=== PATIENT | male | born 1955 | race American Indian/Alaskan Native ===

== ENCOUNTER 2020-07-02 10:45 | Inpatient (IN) | payer MEDICARE ==
--- NOTE | 2020-07-02 11:28 | Emergency Department Report ---
HPI - General Chief Complaint: Syncope Time Seen by Provider: 07/02/20 11:09 - [facility] HPI: Room 23 The patient is a 64-year-old male present with a chief complaint of syncope. Patient states he has been having pain in his legs for the past 6 weeks. Jacinto nt states he took an uber to his primary physician's office this morning and when attempting to get out of the car his legs "would not respond." The patient states staff attempted to help him get into a chair and when he stood up he felt dizzy and had to lay on the floor and staff told him he lost consciousness. Patient was subsequently transferred ported to the ED. Patient denied any preceding chest pain, shortness of breath, palpitations or headache. When asked how he is feeling currently the patient states he feels good. Patient denied any preceding nausea vomiting or diarrhea. Patient denies history of fever. ED Past Medical Hx - Past Medical History Hx Hypertension: Yes Hx HIV: Yes (Viral load undetectable 2018) - Surgical History Additional Surgical History: Cervical fusion, penile implant - Family History Family history: no significant - Social History Smoking Status: Current Every Day Smoker (1 pack/day) Substance Use Type: None (Denies illicit drug use), Alcohol (Frequently) ED Review of Systems ROS: Stated complaint: SYNCOPE Other details as noted in HPI Constitutional: denies: fever Respiratory: denies: shortness of breath Cardiovascular: denies: chest pain, palpitations Endocrine: no symptoms reported Gastrointestinal: denies: nausea, vomiting, diarrhea Neurological: denies: headache Physical Exam - Physical Exam Vital Signs: Vital Signs 07/02/20 11:03 Pulse Rate 60 Respiratory 18 Rate Blood Pressure 100/68 [Left] O2 Sat by Pulse 96 Oximetry Physical Exam: GENERAL: The patient is well-developed well-nourished male lying on stretcher not appearing to be in acute distress. [] HEENT: Normocephalic. Atraumatic. Extraocular motions are intact. Patient has moist mucous membranes. NECK: Supple. Trachea midline CHEST/LUNGS: Clear to auscultation. There is no respiratory distress noted. HEART/CARDIOVASCULAR: Regular. There is no tachycardia. There is no gallop rub or murmur. ABDOMEN: Abdomen is soft, nontender. Patient has normal bowel sounds. There is no abdominal distention. SKIN: There is no rash. There is no edema. There is no diaphoresis. NEURO: The patient is awake, alert, and oriented. The patient is cooperative. The patient has no focal neurologic deficits. The patient has normal speech. Cranial nerves II through XII grossly intact. Patient able to hold either leg at 30 degree angle from bed without drifting for 5-second count MUSCULOSKELETAL: There is no evidence of acute injury. ED Course Vital Signs 07/02/20 11:03 Pulse Rate 60 Respiratory 18 Rate Blood Pressure 100/68 [Left] O2 Sat by Pulse 96 Oximetry ED Medical Decision Making - Lab Data Result diagrams: 07/02/20 11:45 07/02/20 11:45 Laboratory Tests 07/02/20 07/02/20 07/02/20 11:45 11:45 11:45 WBC 4.5 RBC 4.99 Hgb 14.8 Hct 45.2 MCV 91 MCH 30 MCHC 33 RDW 16.7 H Plt Count 247 Lymph % (Auto) 20.0 [place] % (Auto) 10.7 H Eos % (Auto) 0.6 Baso % (Auto) 0.5 Lymph # (Auto) 0.9 L [place] # (Auto) 0.5 Eos # (Auto) 0.0 Baso # (Auto) 0.0 Seg Neutrophils % 68.2 Seg Neutrophils # 3.0 D-Dimer 456.79 H Sodium 136 L Potassium 4.8 Chloride 102.8 Carbon Dioxide 25 Anion Gap 13 BUN 16 Creatinine 1.5 H Estimated GFR 57 BUN/Creatinine Ratio 11 Glucose 90 Calcium 9.3 Magnesium Total Bilirubin 0.40 AST 15 ALT 11 Alkaline Phosphatase 58 Total Creatine Kinase 173 H CK-MB (CK-2) 2.8 CK-MB (CK-2) Rel Index 1.6 Troponin T < 0.010 Total Protein 7.3 Albumin 4.1 Albumin/Globulin Ratio 1.3 TSH Free T4 Plasma/Serum Alcohol 07/02/20 07/02/20 07/02/20 11:45 11:45 11:45 WBC RBC Hgb Hct MCV MCH MCHC RDW Plt Count Lymph % (Auto) [place] % (Auto) Eos % (Auto) Baso % (Auto) Lymph # (Auto) [place] # (Auto) Eos # (Auto) Baso # (Auto) Seg Neutrophils % Seg Neutrophils # D-Dimer Sodium Potassium Chloride Carbon Dioxide Anion Gap BUN Creatinine Estimated GFR BUN/Creatinine Ratio Glucose Calcium Magnesium 2.50 H Total Bilirubin AST ALT Alkaline Phosphatase Total Creatine Kinase CK-MB (CK-2) CK-MB (CK-2) Rel Index Troponin T Total Protein Albumin Albumin/Globulin Ratio TSH 2.200 Free T4 1.10 Plasma/Serum Alcohol < 0.01 - EKG Data -: EKG Interpreted by Me EKG shows normal: sinus rhythm Rate: normal - EKG Data When compared to previous EKG there are: previous EKG unavailable Interpretation: nonspecific ST-T wave thelma - Radiology Data Radiology results: report reviewed (CT head, VQ scan), image reviewed (Chest x-r ay) interpreted by me: Chest x-ray-no focal infiltrates, no pneumothorax. No foreign body seen [address] [address] Nuclear Medicine Report Signed Patient: JASMYN PAGAN MR#: [id number] : 1954 Acct:[id number] Age/Sex: 64 / M ADM Date: 07/02/20 Loc: ED Attending Dr: Ordering Physician: ZOE REA MD Date of Service: 07/02/20 Procedure(s): NM perfusion only lung scan Accession Number(s): [id number] cc: ZOE REA MD NUCLEAR MEDICINE PERFUSION LUNG SCAN INDICATION / CLINICAL INFORMATION: Syncope. TECHNIQUE: 5.0 mCi of Tc-99m MAA were given by IV. COMPARISON: Chest radiograph dated 07/02/2020. FINDINGS: PERFUSION: No significant perfusion defects. ADDITIONAL FINDINGS: None. IMPRESSION: 1. Low probability for pulmonary embolism. Signer Name: Lakhwinder Arredondo MD Signed: 07/02/2020 2:13 PM Workstation Name: [id number] Transcribed By: MARK Dictated By: Lakhwinder Arredondo MD Electronically Authenticated By: Lakhwinder Arredondo MD Signed Date/Time: 07/02/201412 DD/ 11 TD/TT: [address] [address] Cat Scan Report Signed Patient: JASMYN PAGAN MR#: [id number] : 1955 Acct:[id number] Age/Sex: 64 / M ADM Date: 07/02/20 Loc: ED Attending Dr: Ordering Physician: ZOE REA MD Date of Service: 07/02/20 Procedure(s): CT head/brain wo con Accession Number(s): [id number] cc: ZOE REA MD CT head/brain wo con INDICATION / CLINICAL INFORMATION: 64 years Male; Syncope. TECHNIQUE: Routine CT head without contrast. All CT scans at this location are performed using CT dose reduction for ALARA by means of automated exposure control. COMPARISON: None. FINDINGS: BRAIN / INTRACRANIAL CONTENTS: Some component of loss of friend/white differentiation is suggested in the right parietal temporal region-subacute to chronic branch infarct is suspected. Lacunar-type infarct is seen at the junction of the superolateral thalamus and posterior limb of the internal capsule on the left. Small lacunar infarcts are seen in the right lentiform nucleus. There may be an old lacunar infarct near the head of the right caudate, as well. Otherwise, no acute hemorrhage, mass effect, midline shift, hydrocephalus, or acute, large territorial infarct. Mild, diffuse cerebral atrophy noted. Mild to moderate degree of hippocampal atrophy suggested bilaterally. There are mild areas of decreased attenuation in the white matter of the cerebral hemispheres. These are nonspecific findings and may be related to microangiopathy (hypertension, diabetes, atherosclerosis), given the patient's age. It might be difficult to evaluate for small areas of ischemia without diffusion imaging by MRI. Mild pontine disease noted. CRANIOCERVICAL JUNCTION: No significant abnormality. ORBITS: No significant abnormality of visualized orbits. SINUSES / MASTOIDS: No significant abnormality in the visualized paranasal sinuses or mastoid air cells. ADDITIONAL FINDINGS: Asymmetrically decreased attenuation seen in the left parotid gland when compared with the right. Chronic sialoadenitis or chronic sialolith might be a consideration. Note, the glands are incompletely visualized on this exam. Atherosclerotic disease is seen in the anterior and posterior circulation. IMPRESSION: 1. Branch MCA infarct suggested on the right as described above- diffusion imaging by MRI may be of benefit. Small lacunar infarcts suggested as well, in the gangliocapsular regions. 2. Otherwise, no focal mass, hemorrhage, hydrocephalus, or acute, large territorial infarct. 3. Chronic sialoadenitis might be consideration. Please clinically correlate. Signer Name: Ace Stoddard MD, III Signed: 07/02/2020 12:30 PM Workstation Name: [id number] Transcribed By: HR Dictated By: Ace Stoddard MD Electronically Authenticated By: Ace Stoddard MD Signed Date/Time: 07/02/20 1230 DD/ 1221 TD/TT: - Differential Diagnosis Syncope, dysrhythmia, electrolyte imbalance, ACS, PE, ICH Critical care attestation.: If time is entered above; I have spent that time in minutes in the direct care of this critically ill patient, excluding procedure time. ED Disposition Clinical Impression: Syncope Disposition: OP ADMIT IP TO THIS HOSP Is pt being admited?: Yes Does the pt Need Aspirin: Yes Condition: Fair Instructions: Syncope (ED) Time of Disposition: 17:23 (Hospitalist paged (Dr Mercedes))
[2020-07-02 12:06] LABS: Basophils % (Auto) 0.5 % (0.0-1.8); Eosinophils % (Auto) 0.6 % (0.0-4.3); Hematocrit 45.2 % (35.5-45.6); Hemoglobin 14.8 gm/dl (11.8-15.2); Lymphocytes # (Auto) 0.9 K/mm3 (1.2-5.4); Mean Corpuscular HGB Conc 33 % (32-34); Mean Corpuscular Volume 91 fl (84-94); Monocytes # (Auto) 0.5 K/mm3 (0.0-0.8); Monocytes % (Auto) 10.7 % (0.0-7.3); Platelet Count 247 K/mm3 (140-440); Red Blood Count 4.99 M/mm3 (3.65-5.03); Red Cell Distribution Width 16.7 % (13.2-15.2)
[2020-07-02 12:23] LABS: Creatine Kinase MB 2.8 ng/mL (0.0-4.0)
[2020-07-02 12:25] LABS: Alanine Aminotransferase 11 units/L (7-56); Albumin 4.1 g/dL (3.9-5); BUN/Creatinine Ratio 11; Blood Urea Nitrogen 16 mg/dL (9-20); Calcium 9.3 mg/dL (8.4-10.2); Hemolysis Index 8
--- NOTE | 2020-07-02 12:36 | Cat Scan Report ---
CT head/brain wo con INDICATION / CLINICAL INFORMATION: 64 years Male; Syncope. TECHNIQUE: Routine CT head without contrast. All CT scans at this location are performed using CT dos e reduction for ALARA by means of automated exposure control. COMPARISON: None. FINDINGS: BRAIN / INTRACRANIAL CONTENTS: Some component of loss of friend/white differentiation is suggested in t he right parietal temporal region-subacute to chronic branch infarct is suspected. Lacunar-type infarct is seen at the junction of the superolateral thalamus and posterior limb of the internal capsule on the left. Small lacunar infarcts are seen in the right lentiform nucleus. There may be an old lacunar infarct n ear the head of the right caudate, as well. Otherwise, no acute hemorrhage, mass effect, midline shift, hydrocephalus, or acute, large territoria l infarct. Mild, diffuse cerebral atrophy noted. Mild to moderate degree of hippocampal atrophy suggested bilate rally. There are mild areas of decreased attenuation in the white matter of the cerebral hemispheres. These are nonspecific findings and may be related to microangiopathy (hypertension, diabetes, atheroscleros is), given the patient's age. It might be difficult to evaluate for small areas of ischemia without d iffusion imaging by MRI. Mild pontine disease noted. CRANIOCERVICAL JUNCTION: No significant abnormality. ORBITS: No significant abnormality of visualized orbits. SINUSES / MASTOIDS: No significant abnormality in the visualized paranasal sinuses or mastoid air andra ls. ADDITIONAL FINDINGS: Asymmetrically decreased attenuation seen in the left parotid gland when compare d with the right. Chronic sialoadenitis or chronic sialolith might be a consideration. Note, the glan ds are incompletely visualized on this exam. Atherosclerotic disease is seen in the anterior and posterior circulation. IMPRESSION: 1. Branch MCA infarct suggested on the right as described above-diffusion imaging by MRI may be of be nefit. Small lacunar infarcts suggested as well, in the gangliocapsular regions. 2. Otherwise, no focal mass, hemorrhage, hydrocephalus, or acute, large territorial infarct. 3. Chronic sialoadenitis might be consideration. Please clinically correlate. Signer Name: Ace Stoddard MD, III Signed: 07/02/2020 12:30 PM Workstation Name: [id number]
[2020-07-02 13:12] LABS: Free T4 (Free Thyroxine) 1.1 ng/dL (0.76-1.46)
--- NOTE | 2020-07-02 14:17 | Nuclear Medicine Report ---
NUCLEAR MEDICINE PERFUSION LUNG SCAN INDICATION / CLINICAL INFORMATION: Syncope. TECHNIQUE: 5.0 mCi of Tc-99m MAA were given by IV. COMPARISON: Chest radiograph dated 07/02/2020. FINDINGS: PERFUSION: No significant perfusion defects. ADDITIONAL FINDINGS: None. IMPRESSION: 1. Low probability for pulmonary embolism. Signer Name: Lakhwinder Arredondo MD Signed: 07/02/2020 2:13 PM Workstation Name: [id number]
[2020-07-02] MEDS ORDERED: ASPIRIN 325 MG TAB PO ONE (17:23)
[2020-07-02] MEDS ORDERED: ASPIRIN EC 325 MG TAB PO ONE (22:22)
[2020-07-02] MEDS ORDERED: ASPIRIN 325 MG TAB ONE (22:23)
--- NOTE | 2020-07-02 23:00 | History and Physical Report ---
History of Present Illness Date of examination: 07/02/20 Date of admission: 07/02/20 18:09 Chief complaint: Passed out in his primary care physician's office for few seconds to a minute History of present illness: 65-year-old male with history of hypertension and HIV(undetectable viral load) comes in for episode of passing out. Patient states that he has been having pain in the legs for the past 6 weeks and apparently the legs gave away and passed out. Patient was in a primary care physician's office when this incident happened. Apparently the staff attempted to help him get into a chair and when he stood up he felt dizzy and had to lay on the floor. Staff told him that he lost consciousness for few seconds. Patient was transported to the emergency department by EMS. Patient denies any chest pain shortness of breath palpitations or headache. No diaphoresis. No similar episodes in the past. - Past Medical History --Hypertension: Yes --HIV: Yes (Viral load undetectable 2018) - Surgical History Additional Surgical History: Cervical fusion, penile implant - Family History Family history: no significant - Social History Smoking Status: Current Every Day Smoker (1 pack/day) Substance Use Type: None (Denies illicit drug use), Alcohol (Frequently) --Review of Systems ROS: Constitutional no weight loss or weight gain no fever or chills HEENT no sore throat no post nasal drip no diplopia Neck no neck stiffness no lymph gland enlargement Chest and lungs no shortness of breath cough or wheezing CVS no chest pain no diaphoresis no palpitations GI no nausea no vomiting no diarrhea Genitourinary system no dysuria no flank pain Musculoskeletal system no muscle pains no joint pains [employer]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 Apparently lost consciousness for a few seconds as per the staff of the PCP Skin no rash no itching Psychiatric no depression no homicidal or suicidal tendencies Hematologic no lymphedema or bruising Endocrine no polydipsia no polyuria no cold intolerance no heat intolerance Medications and Allergies Allergies Allergy/AdvReac Type Severity Reaction Status Date / Time ibuprofen Allergy Unknown Verified 07/02/20 20:22 trazodone Allergy Unknown Verified 07/02/20 20:22 Home Medications Medication Instructions Recorded Confirmed Last Taken Type Benztropine [Cogentin] 0.5 mg PO BID 07/04/20 07/04/20 07/02/20 History Bictegrav/Emtricit/Tenofov Ala 1 mg PO DAILY 07/04/20 07/04/20 07/02/20 History [Biktarvy 50-200-25 mg (Nf)] FLUoxetine 40 mg PO DAILY 07/04/20 07/04/20 07/02/20 History Gabapentin 100 mg PO Q8HR 07/04/20 07/04/20 07/02/20 History Metoprolol [Lopressor TAB] 25 mg PO BID 07/04/20 07/04/20 07/02/20 History amLODIPine 10 mg PO DAILY 07/04/20 07/04/20 07/02/20 History haloperidoL [Haloperidol] 2 mg PO TID 07/04/20 07/04/20 07/02/20 History oxyCODONE /ACETAMINOPHEN [Percocet 1 tab PO Q6H PRN #10 tablet 07/04/20 Unknown Rx 5/325 mg] risperiDONE [RisperDAL] 2 mg PO DAILY 07/04/20 07/04/20 07/02/20 History Exam - Constitutional Vitals: Temp Pulse Resp BP Pulse Ox 98.2 F 57 L 18 145/87 96 07/02/20 22:56 07/02/20 22:56 07/02/20 22:56 07/02/20 22:56 07/02/20 22:56 General appearance: Present: no acute distress, well-nourished - EENT Eyes: Present: PERRL ENT: hearing intact, clear oral mucosa - Neck Neck: Present: supple, normal ROM - Respiratory Respiratory effort: normal Respiratory: bilateral: CTA - Cardiovascular Heart rate: 78 Rhythm: regular Heart Sounds: Present: S1 & S2. Absent: rub, click - Extremities Extremities: no ischemia, pulses intact, pulses symmetrical, No edema Peripheral Pulses: within normal limits - Abdominal General gastrointestinal: Present: soft, non-tender, non-distended, normal bowel sounds Male genitourinary: Present: normal - Rectal Rectal Exam: deferred - Integumentary Integumentary: Present: clear, warm, dry - Musculoskeletal Musculoskeletal: gait normal, strength equal bilaterally - Psychiatric Psychiatric: appropriate mood/affect, intact judgment & insight - Neurologic Neurologic: CNII-XII intact, moves all extremities - Allied Health Allied health notes reviewed: nursing, case management HEART Score - HEART Score History: Moderately suspicious Age: 45-65 Risk factors: 1-2 risk factors Troponin: Troponin T < 0.010 ng/mL (0.00-0.029) 07/02/20 11:45 Troponin: < normal limit - Critical Actions Critical Actions: 0-3 pts:0.9-1.7%risk of adverse cardiac event.Candidate for discharge Results - Labs CBC & Chem 7: 07/03/20 Unknown 07/03/20 Unknown Labs: Laboratory Last Values WBC 4.5 K/mm3 (4.5-11.0) 07/02/20 11:45 RBC 4.99 M/mm3 (3.65-5.03) 07/02/20 11:45 Hgb 14.8 gm/dl (11.8-15.2) 07/02/20 11:45 Hct 45.2 % (35.5-45.6) 07/02/20 11:45 MCV 91 fl (84-94) 07/02/20 11:45 MCH 30 pg (28-32) 07/02/20 11:45 MCHC 33 % (32-34) 07/02/20 11:45 RDW 16.7 % (13.2-15.2) H 07/02/20 11:45 Plt Count 247 K/mm3 (140-440) 07/02/20 11:45 Lymph % (Auto) 20.0 % (13.4-35.0) 07/02/20 11:45 [place] % (Auto) 10.7 % (0.0-7.3) H 07/02/20 11:45 Eos % (Auto) 0.6 % (0.0-4.3) 07/02/20 11:45 Baso % (Auto) 0.5 % (0.0-1.8) 07/02/20 11:45 Lymph # (Auto) 0.9 K/mm3 (1.2-5.4) L 07/02/20 11:45 [place] # (Auto) 0.5 K/mm3 (0.0-0.8) 07/02/20 11:45 Eos # (Auto) 0.0 K/mm3 (0.0-0.4) 07/02/20 11:45 Baso # (Auto) 0.0 K/mm3 (0.0-0.1) 07/02/20 11:45 Seg Neutrophils % 68.2 % (40.0-70.0) 07/02/20 11:45 Seg Neutrophils # 3.0 K/mm3 (1.8-7.7) 07/02/20 11:45 D-Dimer 456.79 ng/mlDDU (0-234) H 07/02/20 11:45 Sodium 136 mmol/L (137-145) L 07/02/20 11:45 Potassium 4.8 mmol/L (3.6-5.0) 07/02/20 11:45 Chloride 102.8 mmol/L (98-107) 07/02/20 11:45 Carbon Dioxide 25 mmol/L (22-30) 07/02/20 11:45 Anion Gap 13 mmol/L 07/02/20 11:45 BUN 16 mg/dL (9-20) 07/02/20 11:45 Creatinine 1.5 mg/dL (0.8-1.3) H 07/02/20 11:45 Estimated GFR 57 ml/min 07/02/20 11:45 BUN/Creatinine Ratio 11 % 07/02/20 11:45 Glucose 90 mg/dL (75-100) 07/02/20 11:45 POC Glucose 88 mg/dL (70-105) 07/02/20 17:28 Calcium 9.3 mg/dL (8.4-10.2) 07/02/20 11:45 Magnesium 2.50 mg/dL (1.7-2.3) H 07/02/20 11:45 Total Bilirubin 0.40 mg/dL (0.1-1.2) 07/02/20 11:45 AST 15 units/L (5-40) 07/02/20 11:45 ALT 11 units/L (7-56) 07/02/20 11:45 Alkaline Phosphatase 58 units/L (35-129) 07/02/20 11:45 Total Creatine Kinase 173 units/L (55-170) H 07/02/20 11:45 CK-MB (CK-2) 2.8 ng/mL (0.0-4.0) 07/02/20 11:45 CK-MB (CK-2) Rel Index 1.6 (0-4) 07/02/20 11:45 Troponin T < 0.010 ng/mL (0.00-0.029) 07/02/20 11:45 Total Protein 7.3 g/dL (6.3-8.2) 07/02/20 11:45 Albumin 4.1 g/dL (3.9-5) 07/02/20 11:45 Albumin/Globulin Ratio 1.3 % 07/02/20 11:45 TSH 2.200 mlU/mL (0.270-4.200) 07/02/20 11:45 Free T4 1.10 ng/dL (0.76-1.46) 07/02/20 11:45 Plasma/Serum Alcohol < 0.01 % (0-0.07) 07/02/20 11:45 Short CBC 07/03/20 Range/Units Unknown WBC 4.7 (4.5-11.0) K/mm3 Hgb 14.9 (11.8-15.2) gm/dl Hct 45.4 (35.5-45.6) % Plt Count 253 (140-440) K/mm3 BMP 07/03/20 Unknown Sodium 136 L Potassium 4.4 Chloride 101.4 Carbon Dioxide 23 BUN 14 Creatinine 1.1 Glucose 67 L Calcium 9.0 Liver Function 07/03/20 Range/Units Unknown Total Bilirubin 0.30 (0.1-1.2) mg/dL AST 24 (5-40) units/L ALT 13 (7-56) units/L Alkaline Phosphatase 57 (35-129) units/L Albumin 3.9 (3.9-5) g/dL - Imaging and Cardiology EKG: report reviewed (Sinus rhythm no acute ST-T wave changes) [place]/IV: Voiding Method Toilet IV Catheter Type [Left INT / Saline Lock Antecubital] Assessment and Plan Advance Directives: Yes - Patient Problems (1) Syncope Current Visit: Yes Status: Acute Plan to address problem: Syncope work-up Carotid duplex scan Echocardiogram for ejection fraction and valvular abnormalities which can cause syncope like aortic stenosis and hypertrophic cardiomyopathy (2) DVT prophylaxis Current Visit: Yes Status: Acute Plan to address problem: Heparin 5000 every 12 and GI prophylaxis (3) Hypertension Current Visit: Yes Status: Chronic Qualifiers: Hypertension type: essential hypertension Qualified Code(s): I10 - Essential (primary) hypertension Plan to address problem: Continue antihypertensives (4) HIV (human immunodeficiency virus infection) Current Visit: Yes Status: Chronic Qualifiers: HIV symptom status: asymptomatic Qualified Code(s): Z21 - Asymptomatic human immunodeficiency virus [HIV] infection status Plan to address problem: Continue antiretrovirals if he is taking antiretrovirals (5) [place] (acute kidney injury) Current Visit: Yes Status: Acute Plan to address problem: IV fluids for now secondary to vasomotor nephropathy
[2020-07-02] MEDS ORDERED: ONDANSETRON 4 MG/2 ML INJ IV PRN (23:01)
[2020-07-02] MEDS ORDERED: METOCLOPRAMIDE 10 MG/2 ML INJ IV PRN (23:01)
[2020-07-02] MEDS ORDERED: oxyCODONE /ACETAMINOPHEN 5-325MG TAB PO PRN (23:01)
[2020-07-02] MEDS ORDERED: ACETAMINOPHEN 325 MG TAB PO PRN (23:01)
[2020-07-02] MEDS ORDERED: HYDROmorphone 1 MG/1 ML INJ IV PRN (23:01)
[2020-07-02] MEDS ORDERED: D5W/0.9% NACL 1,000 ML IV SCH (23:45)
[2020-07-03] MEDS ORDERED: D5W/0.9% NACL 1,000 ML IV ONE (00:20)
--- NOTE | 2020-07-03 16:43 | XRay Report ---
CHEST 1 VIEW 07/02/2020 1:47 PM INDICATION / CLINICAL INFORMATION: Syncope. COMPARISON: None available. FINDINGS: SUPPORT DEVICES: None. HEART / MEDIASTINUM: No significant abnormality. LUNGS / PLEURA: No significant pulmonary or pleural abnormality. No pneumothorax. ADDITIONAL FINDINGS: No significant additional findings. IMPRESSION: 1. No acute findings. Signer Name: Flo Medina MD Signed: 07/03/2020 7:53 AM Workstation Name: [id number]
--- NOTE | 2020-07-03 17:25 | Progress Note ---
Assessment and Plan Assessment and plan: Autonomic imbalance. Follow up echocardiogram and carotid ultrasound. Bradycardia. Continued telemetry monitoring. Consider Cardiology consultation. Acute kidney injury. Etiology related to dehydration and vasomotor nephropathy History Interval history: No new issues overnight. Hospitalist Physical - Constitutional Vitals: Temp Pulse Resp BP Pulse Ox 98.2 F 57 L 18 145/87 96 07/02/20 22:56 07/02/20 22:56 07/02/20 22:56 07/02/20 22:56 07/02/20 22:56 General appearance: Present: no acute distress, well-nourished - EENT Eyes: Present: PERRL, EOM intact ENT: hearing intact, clear oral mucosa, dentition normal - Neck Neck: Present: supple, normal ROM - Respiratory Respiratory effort: normal Respiratory: bilateral: CTA - Cardiovascular Rhythm: regular Heart Sounds: Present: S1 & S2. Absent: gallop, rub - Extremities Extremities: no ischemia, No edema, Full ROM - Abdominal General gastrointestinal: soft, non-tender, non-distended, normal bowel sounds - Integumentary Integumentary: Present: clear, warm, dry - Neurologic Neurologic: CNII-XII intact, moves all extremities HEART Score - HEART Score Age: 45-65 Risk factors: 1-2 risk factors Troponin: Troponin T < 0.010 ng/mL (0.00-0.029) 07/02/20 11:45 Troponin: < normal limit - Critical Actions Critical Actions: 0-3 pts:0.9-1.7%risk of adverse cardiac event.Candidate for discharge Results - Labs CBC & Chem 7: 07/02/20 11:45 07/02/20 11:45 Labs: Laboratory Last Values WBC 4.5 K/mm3 (4.5-11.0) 07/02/20 11:45 RBC 4.99 M/mm3 (3.65-5.03) 07/02/20 11:45 Hgb 14.8 gm/dl (11.8-15.2) 07/02/20 11:45 Hct 45.2 % (35.5-45.6) 07/02/20 11:45 MCV 91 fl (84-94) 07/02/20 11:45 MCH 30 pg (28-32) 07/02/20 11:45 MCHC 33 % (32-34) 07/02/20 11:45 RDW 16.7 % (13.2-15.2) H 07/02/20 11:45 Plt Count 247 K/mm3 (140-440) 07/02/20 11:45 Lymph % (Auto) 20.0 % (13.4-35.0) 07/02/20 11:45 Porter % (Auto) 10.7 % (0.0-7.3) H 07/02/20 11:45 Eos % (Auto) 0.6 % (0.0-4.3) 07/02/20 11:45 Baso % (Auto) 0.5 % (0.0-1.8) 07/02/20 11:45 Lymph # (Auto) 0.9 K/mm3 (1.2-5.4) L 07/02/20 11:45 Porter # (Auto) 0.5 K/mm3 (0.0-0.8) 07/02/20 11:45 Eos # (Auto) 0.0 K/mm3 (0.0-0.4) 07/02/20 11:45 Baso # (Auto) 0.0 K/mm3 (0.0-0.1) 07/02/20 11:45 Seg Neutrophils % 68.2 % (40.0-70.0) 07/02/20 11:45 Seg Neutrophils # 3.0 K/mm3 (1.8-7.7) 07/02/20 11:45 D-Dimer 456.79 ng/mlDDU (0-234) H 07/02/20 11:45 Sodium 136 mmol/L (137-145) L 07/02/20 11:45 Potassium 4.8 mmol/L (3.6-5.0) 07/02/20 11:45 Chloride 102.8 mmol/L (98-107) 07/02/20 11:45 Carbon Dioxide 25 mmol/L (22-30) 07/02/20 11:45 Anion Gap 13 mmol/L 07/02/20 11:45 BUN 16 mg/dL (9-20) 07/02/20 11:45 Creatinine 1.5 mg/dL (0.8-1.3) H 07/02/20 11:45 Estimated GFR 57 ml/min 07/02/20 11:45 BUN/Creatinine Ratio 11 % 07/02/20 11:45 Glucose 90 mg/dL (75-100) 07/02/20 11:45 POC Glucose 88 mg/dL (70-105) 07/02/20 17:28 Calcium 9.3 mg/dL (8.4-10.2) 07/02/20 11:45 Magnesium 2.50 mg/dL (1.7-2.3) H 07/02/20 11:45 Total Bilirubin 0.40 mg/dL (0.1-1.2) 07/02/20 11:45 AST 15 units/L (5-40) 07/02/20 11:45 ALT 11 units/L (7-56) 07/02/20 11:45 Alkaline Phosphatase 58 units/L (35-129) 07/02/20 11:45 Total Creatine Kinase 173 units/L (55-170) H 07/02/20 11:45 CK-MB (CK-2) 2.8 ng/mL (0.0-4.0) 07/02/20 11:45 CK-MB (CK-2) Rel Index 1.6 (0-4) 07/02/20 11:45 Troponin T < 0.010 ng/mL (0.00-0.029) 07/02/20 11:45 Total Protein 7.3 g/dL (6.3-8.2) 07/02/20 11:45 Albumin 4.1 g/dL (3.9-5) 07/02/20 11:45 Albumin/Globulin Ratio 1.3 % 07/02/20 11:45 TSH 2.200 mlU/mL (0.270-4.200) 07/02/20 11:45 Free T4 1.10 ng/dL (0.76-1.46) 07/02/20 11:45 Plasma/Serum Alcohol < 0.01 % (0-0.07) 07/02/20 11:45 Menon/IV: Voiding Method Toilet IV Catheter Type [Left INT / Saline Lock Antecubital] Active Medications - Current Medications Current Medications: Generic Name Dose Route Start Last Admin Trade Name Freq PRN Reason Stop Dose Admin Acetaminophen 650 mg 07/02/20 23:01 Tylenol PO Q4H PRN Pain MILD(1-3)/Fever >100.5/TITUS Famotidine 20 mg 07/03/20 10:00 Pepcid PO BID [facility] Hydromorphone HCl 0.5 mg 07/02/20 23:01 Dilaudid IV Q3H PRN Pain , Severe (7-10) Dextrose/Sodium Chloride 1,000 mls @ 100 mls/hr 07/02/20 23:45 D5ns IV DIRECT KANA Metoclopramide HCl 10 mg 07/02/20 23:01 Reglan IV Q6H PRN Nausea And Vomiting Ondansetron HCl 4 mg 07/02/20 23:01 Zofran IV Q8H PRN Nausea And Vomiting Oxycodone/Acetaminophen 1 tab 07/02/20 23:01 Percocet 5/325 PO Q6H PRN Pain, Moderate (4-6) Sodium Chloride 10 ml 07/03/20 10:00 Sodium Chloride Flush Syringe 10 Ml IV BID [facility] Sodium Chloride 10 ml 07/02/20 23:01 Sodium Chloride Flush Syringe 10 Ml IV PRN PRN LINE FLUSH
[2020-07-03 19:01] LABS: Basophils % (Auto) 0.4 % (0.0-1.8); Eosinophils % (Auto) 0.7 % (0.0-4.3); Hematocrit 45.4 % (35.5-45.6); Hemoglobin 14.9 gm/dl (11.8-15.2); Lymphocytes # (Auto) 1.1 K/mm3 (1.2-5.4); Lymphocytes % (Auto) 24.3 % (13.4-35.0); Mean Corpuscular HGB Conc 33 % (32-34); Mean Corpuscular Volume 91 fl (84-94); Monocytes # (Auto) 0.6 K/mm3 (0.0-0.8); Monocytes % (Auto) 12.1 % (0.0-7.3); Platelet Count 253 K/mm3 (140-440); Red Blood Count 4.97 M/mm3 (3.65-5.03); Red Cell Distribution Width 16.7 % (13.2-15.2)
[2020-07-03 19:40] LABS: Alanine Aminotransferase 13 units/L (7-56); Albumin 3.9 g/dL (3.9-5); BUN/Creatinine Ratio 13; Blood Urea Nitrogen 14 mg/dL (9-20); Hemolysis Index 51
[2020-07-03] MEDS: FAMOTIDINE 20 MG TAB PO SCH (22:57)
--- NOTE | 2020-07-04 08:38 | Discharge Summary ---
Providers - Providers Date of Admission: 07/02/20 18:09 Date of discharge: 07/04/20 Attending physician: TANVIR NICHOLS Primary care physician: JACQUE DE LA GARZA Hospitalization Reason for admission: Autonomic imbalance Condition: Fair Hospital course: 64-year-old male who presented from physician's office with syncopal episode. Patient reportedly was being helped into a chair by the office staff when patient lost consciousness for a few seconds. Patient denied any chest pain or shortness of breath. No headache or visual disturbances. No palpitations. Upon arrival to the ER, patient was noted to be hypotensive. Patient's laboratory values revealed a creatinine of 1.5 on admission. The patient was admitted with diagnosis of acute kidney injury likely secondary to vasomotor nephropathy and autonomic imbalance. Patient received IV fluid hydration with normalization of creatinine at 1.1. The patient will have echocardiogram today and if found to be negative will be discharged home. Dedicated discharge time 35 minutes. Disposition: DC- TO HOME OR SELFCARE Time spent for discharge: 35 - Discharge Diagnoses (1) Autonomic instability Status: Acute (2) Vasomotor nephropathy Status: Acute (3) F[place] (acute kidney injury) Status: Acute (4) Syncope Status: Acute Core Measure Documentation - Palliative Care Palliative Care/ Comfort Measures: Not Applicable - Core Measures Any of the following diagnoses?: none Exam - Constitutional Vitals: Temp Pulse Resp BP Pulse Ox 98.0 F 73 18 176/101 97 07/04/20 07:50 07/04/20 07:50 07/04/20 07:50 07/04/20 07:50 07/04/20 07:50 General appearance: Present: no acute distress, well-nourished - EENT Eyes: Present: PERRL ENT: hearing intact, clear oral mucosa - Neck Neck: Present: supple, normal ROM - Respiratory Respiratory effort: normal Respiratory: bilateral: CTA - Cardiovascular Heart Sounds: Present: S1 & S2. Absent: rub, click - Extremities Extremities: pulses symmetrical, No edema Peripheral Pulses: within normal limits - Abdominal General gastrointestinal: Present: soft, non-tender, non-distended, normal bowel sounds Male genitourinary: Present: normal - Integumentary Integumentary: Present: clear, warm, dry - Musculoskeletal Musculoskeletal: gait normal, strength equal bilaterally - Psychiatric Psychiatric: appropriate mood/affect, intact judgment & insight - Neurologic Neurologic: CNII-XII intact, moves all extremities Plan Activity: advance as tolerated Weight Bearing Status: Weight Bear as Tolerated Diet: regular Follow up with: JACQUE DE LA GARZA MD [Primary Care Provider] - 3-5 Days Prescriptions: oxyCODONE /ACETAMINOPHEN [Percocet 5/325 mg] 1 tab PO Q6H PRN #10 tablet PRN Reason: Pain, Moderate (4-6)
[2020-07-04] MEDS ORDERED: BENZTROPINE 0.5 MG TAB PO SCH (10:00)
[2020-07-04] MEDS ORDERED: [UNRECOGNIZED DRUG - OTHER] PO SCH (10:00)
[2020-07-04] MEDS ORDERED: FLUOXETINE 40 MG PO SCH (10:00)
[2020-07-04] MEDS ORDERED: risperiDONE 1 MG TAB PO SCH (10:00)
[2020-07-04] MEDS ORDERED: amLODIPine 10 MG TAB PO SCH (10:00)
[2020-07-04] MEDS ORDERED: NON-FORMULARY EACH (Risperidone [Risperdal] 2 MG) PO SCH (10:00)
[2020-07-04] MEDS ORDERED: METOPROLOL TARTRATE 25 MG TAB PO SCH (10:00)
[2020-07-04] MEDS ORDERED: FLUoxetine 20 MG CAP PO SCH (10:00)
[2020-07-04] MEDS: FAMOTIDINE 20 MG TAB PO SCH (10:35)
[2020-07-04 12:03] VITALS: BP 158/85
[2020-07-04] MEDS ORDERED: HALOPERIDOL 2 MG TAB PO SCH (14:00)
[2020-07-04] MEDS ORDERED: HALOPERIDOL 2 MG PO SCH (14:00)
[2020-07-04] MEDS ORDERED: GABAPENTIN 100 MG CAP PO SCH (14:00)
== END 2020-07-04 17:00 | disposition home or self-care (01) | DRG 73 ==
LOC: ED 10:45 → 4A 18:09
PROVIDERS: ADMIT Internal Medicine; ATTEND Hospitalist
DX: G90.8 Other disorders of autonomic nervous system (principal); N17.0 Acute kidney failure with tubular necrosis; G93.41 Metabolic encephalopathy; I10 Essential (primary) hypertension; Z21 Asymptomatic human immunodeficiency virus [HIV] infection status; Z88.6 Allergy status to analgesic agent; Z88.8 Allergy status to other drugs, medicaments and biological substances; F17.210 Nicotine dependence, cigarettes, uncomplicated; E86.0 Dehydration
CPT/HCPCS: 36415; 70450; 71045; 78580; 80053; 80320; 82550; 82553; 82962; 83036; 83735; 84439; 84443; 84484; 85025; 85379; 93005; 93306; G0378; A9540; G0480; J7042